=== PATIENT | male | born 1985 | race Caucasian/White ===

== ENCOUNTER 2017-05-10 21:00 | Emergency (ER) | payer SELFPAY ==
[2017-05-10 21:08] VITALS: BP 161/103
--- NOTE | 2017-05-10 21:14 | ED Physician Documentation ---
History of Present Illness - Stated complaint Stated Complaint: MALE - Chief complaint Chief Complaint: General - History obtained from History obtained from: Patient - History of Present Illness Timing: How many weeks ago (1) Improved by: rest Worsened by: palpation, movement - Additonal information Additional information: c/o one week of painful swelling left buttock. no injury, no h/o similar symptoms. Review of Systems Constitutional: denies: Fever PD PAST MEDICAL HISTORY - Past Medical History Past Medical History: Yes Cardiovascular: Hypertension Respiratory: None Neuro: None Endocrine/Autoimmune: None GI: None : None HEENT: None Psych: None Musculoskeletal: None Derm: None - Past Surgical History Past Surgical History: No - Present Medications Home Medications: Ambulatory Orders Medication Instructions Recorded Confirmed Clindamycin HCl 300 mg PO Q6HR #27 capsule 05/10/17 HYDROcod/ACETAM 5/325 [[place] 5/325] 1 - 2 ea PO Q6H PRN #15 tablet 05/10/17 - Allergies Allergies/Adverse Reactions: Allergies Allergy/AdvReac Type Severity Reaction Status Date / Time No Known Drug Allergies Allergy Verified 05/10/17 21:08 - Social History Does the pt smoke?: Yes Smoking Status: Current every day smoker Does the pt drink ETOH?: Yes Does the pt have substance abuse?: No - Immunizations Immunizations are current?: Yes - POLST Patient has POLST: No PD ED PE NORMAL - Vitals Vital signs reviewed: Yes - General General: Alert and oriented X 3, No acute distress, Well developed/nourished PD ED PE EXPANDED - Male Male visual: 1 - rash, swelling, tenderness (confluent erythema with 2cm diameter fluctuance s/o abscess) Results - Vitals Vitals: Vital Signs - 24 hr 05/10/17 21:04 Temperature 36.8 C Heart Rate 75 Respiratory 17 Rate Blood Pressure 161/103 H O2 Saturation 98 Oxygen O2 Source Room air PD MEDICAL DECISION MAKING - ED course Complexity details: considered differential ED course: Using the beveled edge of a 22g needle, abscess unroofed and with mild pressure , a large amount of thick pus was expressed. This was sent for culture. Patient had improvement in pain. antibiotics prescribed and started in ED, instructed to return if worse and f/u with PMD for recheck Departure - Departure Disposition: 01 Home, Self Care Clinical Impression: Left buttock abscess Condition: Good Instructions: ED Staph Infec Abx Tx Only Follow-Up: [facility] [Provider Group] [facility] [Provider Group] Prescriptions: Clindamycin HCl 300 mg PO Q6HR #27 capsule HYDROcod/ACETAM 5/325 [[place] 5/325] 1 - 2 ea PO Q6H PRN #15 tablet PRN Reason: Pain Comments: Call your primary care provider to arrange for an appointment for a recheck of the abscess (by the end of the week). If you do not have a doctor, contact your insurance provider so you can be assigned one. Forms: Activity restrictions Discharge Date/Time: 05/10/17 21:58
[2017-05-10] MEDS: CLINDAMYCIN 150 MG CAPSULE PO STA (21:53)
[2017-05-10] MEDS: IBUPROFEN 400 MG TABLET PO STA (21:53)
[2017-05-10] MEDS: HYDROcod/ACETAM 5/325 MG TABLET PO STA (21:53)
[2017-05-10] MEDS ORDERED: HYDROcod/ACETAM 5/325 MG TABLET ONE (21:55)
[2017-05-10] MEDS ORDERED: IBUPROFEN 400 MG TABLET PO ONE (21:55)
[2017-05-10] MEDS ORDERED: CLINDAMYCIN 150 MG CAPSULE PO ONE (21:55)
== END 2017-05-10 21:58 | disposition home or self-care (01) ==
LOC: ED 21:00
DX: L02.31 Cutaneous abscess of buttock (principal); I10 Essential (primary) hypertension; F17.200 Nicotine dependence, unspecified, uncomplicated
CPT/HCPCS: 10160; 99282; 99283

== ENCOUNTER 2020-06-14 07:00 | Outpatient (CLI) | payer MEDICAID ==
--- NOTE | 2020-06-14 22:40 | XRAY Report ---
PROCEDURE: Knee 3 View RT INDICATIONS: KNEE PAIN, RIGHT TECHNIQUE: 3 views of the right knee(s) were acquired. COMPARISON: None. FINDINGS: Bones: No fractures or dislocations. No suspicious bony lesions. Soft tissues: No joint effusion. No suspicious soft tissue calcifications. IMPRESSION: Normal right knee Reviewed by: Kam Jarvis on 06/14/2020 10:38 PM [facility] Approved by: Kam Jarvis on 06/14/2020 10:38 PM [facility] Station ID: [id number]
== END 2020-06-14 23:59 | disposition home or self-care (01) ==
LOC: DI.S 07:00
PROVIDERS: ATTEND Physician Assistant
DX: M25.561 Pain in right knee (principal)

== ENCOUNTER 2020-08-02 13:48 | Outpatient (CLI) | payer MEDICAID ==
[2020-08-02] MEDS ORDERED: BUFFERED LIDOCAINE 10 ML SYRINGE ONE (14:11)
[2020-08-02] MEDS ORDERED: GADOBUTROL 7.5 MMOL/7.5 ML VIAL ONE (14:11)
[2020-08-02] MEDS ORDERED: BUFFERED LIDOCAINE 10 ML SYRINGE IU ONE (15:08)
--- NOTE | 2020-08-02 15:37 | XRAY Report ---
PROCEDURE: Arthrogram Needle Placement INDICATIONS: RT PATELLAR TENDONITIS, RT KNEE PAIN TECHNIQUE: Attempted intra-articular injection of a gadolinium/saline solution for MR arthrography wa s performed. COMPARISON: None. FINDINGS: The patient was unable to proceed with the examination. He was highly anxious, shaking, reporting carmelo r syncopal condition, and maintain a rigid positioning across the knee joint during attempt at even p lacing lidocaine. The procedure was terminated for safety of the patient. IMPRESSION: The patient could not tolerate proceeding with the examination. The study was terminated after report ed near syncopal condition and rigidity of the knee region. Please correlate for whether a noncontras t (nonarthrogram) MRI would suffice in this circumstance. If arthrography is considered necessary aboriginal education worker coordinator rdination with the anesthesia staff likely is warranted to supervise and administered deeper sedation . Reviewed by: Andres Retana MD on 08/02/2020 3:36 PM PST Approved by: Andres Retana MD on 08/02/2020 3:36 PM PST Station ID: [id number]
== END 2020-08-02 13:49 | disposition home or self-care (01) ==
LOC: DI 13:48
PROVIDERS: ATTEND Physician Assistant
DX: M76.51 Patellar tendinitis, right knee (principal); M25.561 Pain in right knee

== ENCOUNTER 2020-08-28 10:26 | Emergency (ER) | payer MEDICAID ==
--- NOTE | 2020-08-28 11:01 | ED Physician Documentation ---
PD HPI NVD - Stated complaint Stated Complaint: MALE ,WITHDRAW - Chief complaint Chief Complaint: General - History obtained from History obtained from: Patient - History of Present Illness Timing - onset: Today, Last night Timing - duration: Days (1) Timing - details: Gradual onset, Still present Associated symptoms: Loss of appetite. No: Fever, Abdominal pain, Near syncope / syncope Contributing factors: Alcohol use (had been in detox and then sober for couple of months, now drinking alcohol again past 2 weeks. Stopped yesterday and no alcohol today. Having nausea and shaky. Some vomiting overnight. Feels dehydrated. Also with dysuria and noted dark urine.) Worsened by: Eating Similar symptoms before: Diagnosis (has had alcohol withdrawal in the past without seizures nor delerium. Been treated with Ativan in past. No prior dysuria episodes. Denies exposure to STDs.) Recently seen: Not recently seen Review of Systems Constitutional: denies: Fever, Chills Nose: denies: Rhinorrhea / runny nose, Congestion Throat: denies: Sore throat Respiratory: denies: Cough GI: reports: Nausea, Vomiting. denies: Abdominal Pain, Diarrhea, Hematemesis : reports: Dysuria, Frequency, Hematuria Skin: denies: Rash, Lesions Neurologic: reports: Generalized weakness. denies: Headache PD PAST MEDICAL HISTORY - Past Medical History Cardiovascular: Hypertension Respiratory: None Endocrine/Autoimmune: None GI: None : None HEENT: None Psych: None Musculoskeletal: None Derm: None - Past Surgical History Past Surgical History: No - Present Medications Home Medications: Ambulatory Orders Medication Instructions Recorded Confirmed Famotidine [Pepcid] 20 mg PO DAILY #20 tablet 08/28/20 HYDROcod/ACETAM 5/325 [[place] 5/325] 1 ea PO Q6H PRN #10 tablet 08/28/20 LORazepam [Ativan] 1 mg PO Q6H PRN #25 tablet 08/28/20 Ondansetron Odt [Zofran] 4 mg TL Q6H PRN #10 tablet 08/28/20 cephALEXin [Keflex] 500 mg PO TID #20 capsule 08/28/20 - Allergies Allergies/Adverse Reactions: Allergies Allergy/AdvReac Type Severity Reaction Status Date / Time No Known Drug Allergies Allergy Verified 08/28/20 10:39 - Social History Does the pt smoke?: Yes Smoking Status: Current every day smoker Does the pt drink ETOH?: Yes Does the pt have substance abuse?: No - Immunizations Immunizations are current?: Yes - POLST Patient has POLST: No PD ED PE NORMAL - Vitals Vital signs reviewed: Yes - General General: Alert and oriented X 3, No acute distress, Well developed/nourished - HEENT HEENT: Pharynx benign. No: Moist mucous membranes - Neck Neck: Supple, no meningeal sign, No adenopathy - Cardiac Cardiac: No murmur. No: RRR (regular but tachycardic) - Respiratory Respiratory: Clear bilaterally - Abdomen Abdomen: Normal bowel sounds, Soft, Non tender, Non distended, No organomegaly - Male Male : Deferred, Other (some suprapubic fullness, will get bladder scan. ) - Derm Derm: Normal color, Warm and dry - Extremities Extremities: No deformity, No tenderness to palpate - Neuro Neuro: Alert and oriented X 3, No motor deficit, Normal speech Results - Vitals Vitals: Vital Signs - 24 hr 08/28/20 08/28/20 08/28/20 10:36 11:33 14:52 Temperature 36.4 C L Heart Rate 122 H 90 101 H Respiratory 20 16 16 Rate Blood Pressure 133/79 H 114/74 133/85 H O2 Saturation 100 98 96 08/28/20 16:04 Temperature 37.4 C Heart Rate 110 H Respiratory 18 Rate Blood Pressure 127/76 O2 Saturation 95 Oxygen O2 Source Room air - Labs Labs: Laboratory Tests 08/28/20 08/28/20 08/28/20 10:45 10:50 10:50 WBC 9.3 RBC 4.53 L Hgb 15.6 Hct 44.3 MCV 97.8 H MCH 34.4 H MCHC 35.2 RDW 12.4 Plt Count 264 MPV 9.3 Neut # (Auto) 6.5 Lymph # (Auto) 2.2 [place] # (Auto) 0.5 Eos # (Auto) 0.1 Baso # (Auto) 0.1 Absolute Nucleated RBC 0.00 Nucleated RBC % 0.0 Sodium 142 Potassium 3.5 Chloride 100 L Carbon Dioxide 22 Anion Gap 20.0 H BUN 12 Creatinine 0.8 Estimated GFR (MDRD) 111 Glucose 96 Calcium 8.8 Total Bilirubin 1.0 AST 26 ALT 23 Alkaline Phosphatase 70 Total Protein 7.1 Albumin 4.2 Globulin 2.9 Albumin/Globulin Ratio 1.4 Lipase 29 Urine Color DARK YELLOW Urine Clarity SL. CLOUDY Urine pH 5.5 Ur Specific [place] >=1.030 H Urine Protein 100 H Urine Glucose (UA) NEGATIVE Urine Ketones TRACE Urine Occult Blood LARGE H Urine Nitrite NEGATIVE Urine Bilirubin NEGATIVE Urine Urobilinogen 0.2 (NORMAL) Ur Leukocyte Esterase NEGATIVE Urine RBC TNTC H Urine WBC 4-5 Ur Squamous Epith Cells RARE Squamous Urine Bacteria Moderate H Ur Microscopic Review INDICATED Urine Culture Comments INDICATED PD MEDICAL DECISION MAKING - ED course Complexity details: re-evaluated patient (Nausea improved. Developed some cramping lower abd pain suprapubic. Minimal tenderness on exam. Bladder scan showing only small amount. Given meds and abd pain better. Exam not focally tender. Presume bladder spasm with UTI. Does not seem appendix or such at this time. ), considered differential (presume some alcoholic gastritis and some withdrawal symptoms. Has dysuria so can get UA. Will give IV fluids and meds. ), d/w patient ED course: pt was hydrated and given meds. Rested. He is feeling able to take PO. He had some lower abd pain develop; cramping. Likely bladder spasm. Given some meds IV and feeling improved. Exam with minimal tenderness lower abd and no guarding. About to discharge pt and his mom called and said the detox facility he had been in recently has a bed available (she was calling them). SW talked with pt here and he did not feel ready to go to detox right now. Preferred meds for withdrawal and discharge. Prolonged ED course with these various additions to the expected flow of treatment. Departure - Departure Disposition: 01 Home, Self Care Clinical Impression: Dehydration UTI (urinary tract infection) Qualifiers: Urinary tract infection type: acute cystitis Hematuria presence: with hematuria Qualified Code(s): N30.01 - Acute cystitis with hematuria Alcohol withdrawal Qualifiers: Complication of substance-induced condition: uncomplicated Qualified Code(s): F10.230 - Alcohol dependence with withdrawal, uncomplicated Nausea and vomiting Qualifiers: Vomiting type: unspecified Vomiting Intractability: non-intractable Qualified Code(s): R11.2 - Nausea with vomiting, unspecified Condition: Stable Record reviewed to determine appropriate education?: Yes Instructions: ED Withdrawal Alcohol, ED UTI Cystitis Male Follow-Up: HARITHA AMBROSIO PA-C [Primary Care Provider] - Prescriptions: LORazepam [Ativan] 1 mg PO Q6H PRN #25 tablet PRN Reason: Alcohol Withdrawal cephALEXin [Keflex] 500 mg PO TID #20 capsule HYDROcod/ACETAM 5/325 [[place] 5/325] 1 ea PO Q6H PRN #10 tablet PRN Reason: Pain Famotidine [Pepcid] 20 mg PO DAILY #20 tablet Ondansetron Odt [Zofran] 4 mg TL Q6H PRN #10 tablet PRN Reason: Nausea / Vomiting Comments: Famotidine daily to decrease stomach acids since your stomach is likely irrit ated from the alcohol and vomiting. Use this daily for couple of weeks. Ondansetron if needed for nausea. No alcohol nor caffeine. [place] food. Cephalexin 3 times a day as directed for the urinary tract infection. Stay well-hydrated. Tylenol or ibuprofen if needed for pains. Add hydrocodone if needed for pain short term. I would anticipate improvement in the bladder/urethral symptoms over the next couple of days. Lorazepam every 6 hours if needed for alcohol withdrawal symptoms. Taper down the use and stretch out the timing between doses as tolerated over the next several days to week. This is similar to other times you have used it for withdrawal. Detox as desired. I would also suggest AA meetings and other support services. Discharge Date/Time: 08/28/20 16:18
[2020-08-28 11:03] LABS: BASOPHILS # (AUTO) 0.1 10^3/uL (0.0-0.1); BASOPHILS % (AUTO) 0.6 %; EOSINOPHILS # (AUTO) 0.1 10^3/uL (0.0-0.7); EOSINOPHILS % (AUTO) 0.5 %; HGB - HEMOGLOBIN 15.6 g/dL (14.0-18.0); LYMPHOCYTES # (AUTO) 2.2 10^3/uL (1.5-3.5); LYMPHOCYTES % (AUTO) 23.5 %; MEAN CORPUSCULAR HEMOGLOBIN 34.4 pg (27.0-31.0); MEAN CORPUSCULAR HGB CONC 35.2 g/dL (32.0-36.0); MEAN CORPUSCULAR VOLUME 97.8 fL (80.0-94.0); MEAN PLATELET VOLUME 9.3 fL (7.4-11.4); MONOCYTES # (AUTO) 0.5 10^3/uL (0.0-1.0); MONOCYTES % (AUTO) 5.3 %; NEUTROPHILS # (AUTO) 6.5 10^3/uL (1.5-6.6); NEUTROPHILS % (AUTO) 69.9 %; PLT - PLATELET COUNT 264 10^3/uL (130-450); RED BLOOD COUNT 4.53 10^6/uL (4.70-6.10); RED CELL DISTRIBUTION WIDTH 12.4 % (12.0-15.0); WHITE BLOOD COUNT 9.3 x10^3/uL (4.8-10.8)
[2020-08-28 11:05] LABS: GLUCOSE, URINE (UA) NEGATIVE (NEGATIVE); KETONES,URINE (UA) TRACE mg/dL (NEGATIVE); LEUKOCYTE ESTERASE, URINE NEGATIVE (NEGATIVE); NITRITE,URINE NEGATIVE (NEGATIVE); OCCULT BLOOD,URINE LARGE (NEGATIVE); PH,URINE 5.5 PH (5.0-7.5); PROTEIN,URINE 100 mg/dL (NEGATIVE); UROBILINOGEN,URINE 0.2 (NORMAL) E.U./dL (NORMAL)
[2020-08-28 11:06] LABS: BILIRUBIN,URINE NEGATIVE (NEGATIVE); CLARITY,URINE SL. CLOUDY (CLEAR); ICTOTEST,URINE NEGATIVE
[2020-08-28 11:14] LABS: BACTERIA,URINE Moderate /HPF (None Seen); RBC,URINE TNTC /HPF (0-5); SQUAMOUS EPITHELIAL CELL,UR RARE Squamous (<= Few)
[2020-08-28] MEDS ORDERED: ONDANSETRON 4 MG/2 ML VIAL IVP STA (11:19)
[2020-08-28] MEDS ORDERED: FAMOTIDINE 20 MG/2 ML VIAL IVP STA (11:19)
[2020-08-28] MEDS ORDERED: SODIUM CHLORIDE 0.9% 1,000 ML IV STA ×2 (11:19→13:39)
[2020-08-28] MEDS ORDERED: LORazepam 2 MG/ML VIAL IVP STA (11:19)
[2020-08-28] MEDS ORDERED: cefTRIAXone 1 GM VIAL IVP STA (11:20)
[2020-08-28 11:35] LABS: ALBUMIN 4.2 g/dL (3.2-5.5); ALBUMIN/GLOBULIN RATIO 1.4 (1.0-2.2); CALCIUM 8.8 mg/dL (8.5-10.3); CREATININE 0.8 mg/dL (0.6-1.2); TOTAL PROTEIN 7.1 g/dL (6.7-8.2)
[2020-08-28] MEDS ORDERED: HYDROmorphone 1 MG/ML CARPUJECT IVP STA (13:40)
[2020-08-28] MEDS ORDERED: KETOROLAC 15 MG/ML VIAL IVP STA (14:09)
[2020-08-28 16:05] VITALS: BP 127/76
== END 2020-08-28 16:18 | disposition home or self-care (01) ==
LOC: ED 10:26
DX: F10.230 Alcohol dependence with withdrawal, uncomplicated (principal); N30.01 Acute cystitis with hematuria; E86.0 Dehydration; I10 Essential (primary) hypertension; F17.200 Nicotine dependence, unspecified, uncomplicated
CPT/HCPCS: 36415; 51798; 80053; 81001; 83690; 85025; 87086; 96361; 96374; 96375; 99284; 99285; J1170; J2060; 81003

== ENCOUNTER 2021-09-12 13:47 | Emergency (ER) | payer MEDICAID ==
[2021-09-12] MEDS ORDERED: LIDOCAINE 1%-EPI 1:100000 20 ML MDV SUBQ STA (14:02)
[2021-09-12] MEDS ORDERED: HYDROcod/ACETAM 5/325 MG TABLET PO STA (14:14)
--- NOTE | 2021-09-12 14:16 | ED Physician Documentation ---
PD HPI WOUND RECHECK - Stated complaint Stated Complaint: SWELLING,PX BUTTOM - Chief complaint Chief Complaint: Wound - Histroy obtained from History obtained from: Patient - Additional information Additional information: About a week's worth of painful swelling to the right buttock internally. No fevers or chills. No weight loss or bowel movement changes. Review of Systems Constitutional: reports: Reviewed and negative Eyes: reports: Reviewed and negative Cardiac: reports: Reviewed and negative Respiratory: reports: Reviewed and negative PD PAST MEDICAL HISTORY - Past Medical History Cardiovascular: Hypertension Respiratory: None Neuro: None Endocrine/Autoimmune: None GI: None : None HEENT: None Psych: None Musculoskeletal: None Derm: None - Past Surgical History Past Surgical History: No - Present Medications Home Medications: Ambulatory Orders Medication Instructions Recorded Confirmed Amox/Clav 875/125 [Augmentin] 1 each PO Q12H #14 tablet 09/12/21 - Allergies Allergies/Adverse Reactions: Allergies Allergy/AdvReac Type Severity Reaction Status Date / Time No Known Drug Allergies Allergy Verified 09/12/21 13:54 - Social History Does the pt smoke?: Yes Smoking Status: Current every day smoker Does the pt drink ETOH?: Yes Does the pt have substance abuse?: No - Immunizations Immunizations are current?: Yes - POLST Patient has POLST: No PD ED PE NORMAL - Vitals Vital signs reviewed: Yes - General General: Alert and oriented X 3, No acute distress - Derm Derm: Other (There is a pointed abscess on the right medial gluteal area, inside the crease but not perirectal abscess) - Neuro Neuro: Alert and oriented X 3, Normal speech Results - Vitals Vitals: Vital Signs - 24 hr 09/12/21 13:52 Temperature 37 C Heart Rate 99 Respiratory 16 Rate Blood Pressure 137/90 H O2 Saturation 97 Oxygen O2 Source Room air Procedures - Abscess I&D (location) R buttock Preparation: Alcohol, Lidocaine 1% Incision: Incised with scalpel, Purulent drainage, Loculations broken, Packed Other: Pt tolerated well, Dressing applied, Antibiotic prescribed Departure - Departure Disposition: 01 Home, Self Care Clinical Impression: Abscess Condition: Good Record reviewed to determine appropriate education?: Yes Instructions: ED Abscess IandD Prescriptions: Amox/Clav 875/125 [Augmentin] 1 each PO Q12H #14 tablet Comments: Return for packing removal in 2 days, sooner if worse or if new symptoms develop. I sent your prescription electronically to [facility] in [place]. Note for your records that you received 2 hydrocodone here.
[2021-09-12 14:21] VITALS: BP 132/80
== END 2021-09-12 14:22 | disposition home or self-care (01) ==
LOC: ED 13:47
DX: L02.31 Cutaneous abscess of buttock (principal); I10 Essential (primary) hypertension; F17.200 Nicotine dependence, unspecified, uncomplicated
CPT/HCPCS: 10061; 99282; A9270